=== PATIENT | female | born 1970 | race Caucasian/White ===

== ENCOUNTER 2020-08-15 07:50 | Day surgery (SDC) | payer BC, OTHER ==
[2020-08-12 16:16] VITALS: BMI 28.7
[2020-08-15 08:25] VITALS: TEMP 98.3
[2020-08-15] MEDS ORDERED: PROPOFOL 20 ML ONE ×3 (09:01)
[2020-08-15 10:06] VITALS: BP 115/76; PULSE 85
== END 2020-08-15 10:30 | disposition home or self-care (01) ==
LOC: FASU-ENDO 07:50
PROVIDERS: ATTEND Internal Medicine Gastroenterology
PROC: 0DJD8ZZ Inspection of Lower Intestinal Tract, Via Natural or Artificial Opening Endoscopic (ICD-10-PCS; principal; 2020-08-15 09:02)
DX: Z12.11 Encounter for screening for malignant neoplasm of colon (principal)
CPT/HCPCS: 84703